=== PATIENT | female | born 1955 | race Caucasian/White ===

== ENCOUNTER → 2021-03-19 11:03 | Outpatient (CLI) | payer OTHER, SELFPAY ==
--- NOTE | ~2021-03-19 | US_ITS ---
EXAMINATION: US renal BI DATE: 03/19/2021 11:19 INDICATION: Abnormal result of function studies kidney TECHNIQUE: Multiple ultrasound grayscale images of the kidneys were obtained. COMPARISON: 07/02/2010 FINDINGS: The right kidney measures 10.2 x 3.9 x 4.6 cm. The left kidney measures 9.9 x 4.7 x 5.2 cm. The kidne ys demonstrate normal echogenicity. There is no hydronephrosis in either kidney. No stones identifie d. There is a 2.7 x 1.5 similar anechoic fluid collection which appears to communicate with the other santillan normal-appearing bladder which could represent either a bladder diverticulum or urethral diverti culum. IMPRESSION: 1. Normal kidneys without hydronephrosis. 2. 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 Reviewed, dictated and finalized at location A. [employer]
== END ==
PROVIDERS: PCP Family Medicine; Visit Provider Internal Medicine Nephrology
DX: R94.4 Abnormal results of kidney function studies (principal)
CPT/HCPCS: 76775

== ENCOUNTER 2021-05-10 07:26 | Outpatient (CLI) | payer OTHER, SELFPAY ==
[2021-05-10 07:52] LABS: Hemoglobin A1C 5.4 % (<5.7)
[2021-05-10 08:20] LABS: Alanine Aminotransferase 36 U/L (14-59); Albumin Level 3.9 g/dL (3.4-5.0); Alkaline Phosphatase 86 U/L (46-116); Anion Gap 9 mmol/L (8-16); Aspartate Amino Transferase 17 U/L (15-37); Bilirubin,Total 0.5 mg/dL (0.00-1.00); Blood Urea Nitrogen 17 mg/dL (7-18); Calcium 9.1 mg/dL (8.5-10.1); Carbon Dioxide 27 mmol/L (21-32); Chloride 105 mmol/L (98-108); Cholesterol 124 mg/dL (0-200); Estimated Glomerular Filt Rate 53; Glucose 106 mg/dL (70-99); HDL Direct 48 mg/dL (40-60); LDL Cholesterol Calculated 39 mg/dL (<130); Osmolality Calculated 293 mOsm/kg (285-295); Potassium 4.2 mmol/L (3.5-5.1); Sodium 141 mmol/L (136-145); Triglycerides 184 mg/dL (0-150)
[2021-05-13 18:17] LABS: Vitamin D 25 Hydroxy 56 ng/mL (30-100)
== END 2021-05-10 07:27 | disposition home or self-care (01) ==
LOC: CHSLAB 07:29
PROVIDERS: PCP Family Medicine; Visit Provider Family Medicine
DX: Z00.00 Encounter for general adult medical examination without abnormal findings (principal); E78.2 Mixed hyperlipidemia; E55.9 Vitamin D deficiency, unspecified; N18.30 Chronic kidney disease, stage 3 unspecified; R73.9 Hyperglycemia, unspecified
CPT/HCPCS: 36415; 80053; 80061; 82306; 83036

== ENCOUNTER 2021-07-16 16:35 | Outpatient (CLI) | payer OTHER, SELFPAY ==
[2021-07-16 17:06] LABS: Creatinine Urine 57.42 mg/dL (40-278); Total Protein Urine Random < 7.0 mg/dL (0.0-11.9); Ur Ttl Prot Creatinine Ratio 0.12 mg/mg (0-0.20)
[2021-07-16 17:36] LABS: Albumin Level 3.7 g/dL (3.4-5.0); Anion Gap 3 mmol/L (8-16); Blood Urea Nitrogen 20 mg/dL (7-18); Calcium 8.9 mg/dL (8.5-10.1); Carbon Dioxide 31 mmol/L (21-32); Chloride 104 mmol/L (98-108); Estimated Glomerular Filt Rate 52; Glucose 102 mg/dL (70-99); Osmolality Calculated 288 mOsm/kg (285-295); Phosphorus 3.5 mg/dL (2.6-4.7); Potassium 4.4 mmol/L (3.5-5.1); Sodium 138 mmol/L (136-145)
== END 2021-07-16 16:36 | disposition home or self-care (01) ==
LOC: CHSLAB 16:38
PROVIDERS: PCP Family Medicine; Visit Provider Internal Medicine Nephrology
DX: R94.4 Abnormal results of kidney function studies (principal)
CPT/HCPCS: 36415; 80069; 82570; 82610; 84156

== ENCOUNTER → 2021-09-30 15:48 | Outpatient (CLI) | payer MEDICARE, SELFPAY ==
--- NOTE | ~2021-09-30 | XR_ITS ---
EXAMINATION: XR finger 1st RT min 2V DATE: 09/30/2021 16:09 INDICATION: Right thumb pain. TECHNIQUE: 3 views of right thumb were obtained. COMPARISON: None. FINDINGS: Bone alignment is normal. No fracture. There is mild osteoarthritis of first carpometacarpa l joint, first metacarpophalangeal joint, and first interphalangeal joint. IMPRESSION: 1. Mild polyarticular osteoarthritis. Reviewed, dictated and finalized at location A.
== END ==
PROVIDERS: PCP Family Medicine; Visit Provider Physician Assistant Medical
DX: M19.041 Primary osteoarthritis, right hand (principal)
CPT/HCPCS: 73140

== ENCOUNTER 2022-05-16 10:48 | Outpatient (CLI) | payer MEDICARE, SELFPAY ==
--- NOTE | ~2022-05-16 | DEXA_ITS ---
Bone Density Report Name: ANDRE CANO Age: 66 Sex: Female Ethnicity: White Date of : 1955 Indication: postmenopausal; screening for osteoporosis; height loss; Referring Provider: Lien Mensah Study: Bone densitometry was performed. Exam Date: May 16, 2022 Accession number: [id number] Bone Density: Region BMD T-score Z-score Classification AP Spine(L2, L3, L4) 1.086 0.1 1.9 Normal Femoral Neck (Left) 0.717 -1.2 0.4 Osteopenia Total Hip (Left) 0.921 -0.2 1.1 Normal Femoral Neck (Right) 0.781 -0.6 0.9 Normal Total Hip (Right) 0.969 0.2 1.5 Normal Femoral Neck Mean 0.749 -0.9 0.6 Normal Total Hip Mean 0.945 0.0 1.3 Normal World Health Organization criteria for BMD impression classify patients as: Normal (T-score at or above -1.0), Osteopenia (T-score between -1.0 and -2.5), or Osteoporosis (T-score at or below -2.5). 10-year Fracture Risk(1): Major Osteoporotic Fracture 7.9% Hip Fracture 0.7% Reported Risk Factors: [place] (), Neck BMD=0.717, BMI=34.3 (1) FRAX(R) Version 3.08. Fracture probability calculated for an untreated patient. Fracture probability may be lower if the patient has received treatment. Clinical Information Provided by Patient: Has used the following medications: Vitamin D, Calcium, arovastatin Patient maximum height was 67 Menopause Age: 42 No regular weight bearing exercise Drinks caffeinated beverages Onset of menses at age 17 Number of children 4 Impression: The patient has low bone mass, based on the Left Femoral Neck T-score. Discussion: BONE DENSITY IS LOW AT ONE OR MORE SKELETAL SITES. This patient's lowest T-score is low at one or more skeletal sites. It meets the World Health Organization's (WHO) criteria for ?low bone mass? (T-score between -1.0 and -2.5). The patient's 10-year risk of fracture as calculated by FRAX is less than the threshold where pharmacological therapy is recommended by the National Osteoporosis Foundation (NOF). However, all treatment decisions require clinical judgment and consideration of individual patient factors, including patient preferences, comorbidities, previous drug use, risk factors not captured in the FRAX model (e.g., frailty, falls, vitamin D deficiency, increased bone turnover, interval significant decline in bone density) and possible under or overestimation of fracture risk by FRAX. The patient should follow a healthful lifestyle (good nutrition with adequate calcium and vitamin D, and appropriate weight-bearing exercise). Follow-Up: Consider repeating this study in 2 to 3 years to reassess this patient's status, or sooner if there is some new clinical indication. Reported by: Dr. Andre Hogan on 05/16/2022 11:18:00 AM.
== END 2022-05-16 10:49 | disposition home or self-care (01) ==
LOC: CHSIMG 10:50
PROVIDERS: PCP Family Medicine; Visit Provider Family Medicine
DX: Z78.0 Asymptomatic menopausal state (principal); M85.88 Other specified disorders of bone density and structure, other site
CPT/HCPCS: 77080

== ENCOUNTER 2022-06-02 07:59 | Outpatient (RCR) | payer MEDICARE, SELFPAY ==
--- NOTE | 2022-06-02 08:48 | PTOPEVAL1 ---
Assessment and note entered by Joseph Hammer Evaluation Information Assessment Status Evaluation Diagnosis arthralgia, weakness Onset 11/16/21 Subjective Information Pt. reports that she was able to do a 10 mile hike as of the past year. She reports she has noticed progressive fatigue and an inability to walk that distance over the past year. She states that she can have pain through both the upper body and lower body that limits her ability to stand for extended periods of time. She reports that she requires support to get off the floor. She notices she fatigues more easily with stair navigation. She is concerned regarding a general decline in her endurance and strength. She reports that the most she walks currently is about 2/3 of a mile. Pt. reports she has done multiple labs, which all return normal. She reports that her goal is to improve her strength and endurance with standing activities. Reported Pain Level Pain Score 8: Self Report Assessment PT Clinical Summary Pt. is a 66 year old female who enters the clinic due to developement of generalized pain and weakness through the upper and lower extremities. She presents with impaired flexibility and impaired proximal u.e. and l.e. strength on this date. Continued skilled PT is indicated in order to improve these areas to allow the pt. to improve endurance and comfort with standing activities. Plan of Care Interventions Electrical Stimulation,Manual Therapy,Neuro Re- education,Patient/Caregiver Educati,Therapeutic Activities,Therapeutic Exercise,Self-Care/Home Management PT Services Indicated Yes Treatment Frequency and 2x/week x 8 visits Duration These treatments will address the objective and functional deficits as defined above. The patient will be advanced safely and appropriately in order for the patient to progress towards his/her prior level of function. Additional exercises will be introduced and as well as a comprehensive home exercise program upon discharge, if needed, ?to ensure carryover of functional gains achieved in the clinic. This treatment plan has been reviewed and agreement upon by the patient.
== END 2022-06-25 13:27 | disposition home or self-care (01) ==
LOC: CHSPT 07:59
DX: M25.50 Pain in unspecified joint (principal)
CPT/HCPCS: 97110; 97112; 97161; 97530; 97750

== ENCOUNTER 2022-11-12 08:17 | Outpatient (CLI) | payer MEDICARE, SELFPAY ==
[2022-11-12 09:12] LABS: Alanine Aminotransferase 31 U/L (14-59); Albumin Level 3.7 g/dL (3.4-5.0); Alkaline Phosphatase 106 U/L (46-116); Anion Gap 11 mmol/L (8-16); Aspartate Amino Transferase 14 U/L (15-37); Bilirubin,Total 0.7 mg/dL (0.00-1.00); Blood Urea Nitrogen 13 mg/dL (7-18); Calcium 9.6 mg/dL (8.5-10.1); Carbon Dioxide 26 mmol/L (21-32); Chloride 104 mmol/L (98-108); Cholesterol 157 mg/dL (0-200); Estimated Glomerular Filt Rate 55; Glucose 107 mg/dL (70-99); HDL Direct 44 mg/dL (40-60); LDL Cholesterol Calculated 65 mg/dL (<130); Osmolality Calculated 292 mOsm/kg (285-295); Potassium 4.3 mmol/L (3.5-5.1); Sodium 141 mmol/L (136-145); Total Protein 7.1 g/dL (6.4-8.2); Triglycerides 239 mg/dL (0-150)
== END 2022-11-12 08:18 | disposition home or self-care (01) ==
LOC: CHSLAB 08:19
PROVIDERS: PCP Family Medicine; Visit Provider Family Medicine
DX: E78.2 Mixed hyperlipidemia (principal); N18.30 Chronic kidney disease, stage 3 unspecified
CPT/HCPCS: 36415; 80053; 80061

== ENCOUNTER 2023-01-12 15:05 | Outpatient (CLI) | payer MEDICARE, SELFPAY ==
--- NOTE | ~2023-01-12 | XR_ITS ---
EXAMINATION: XR ankle LT min 3V DATE: 01/12/2023 15:24 INDICATION: Left ankle pain. TECHNIQUE: 4 views of left ankle were obtained. COMPARISON: None. FINDINGS: There is a transverse fracture of lateral malleolus in near-anatomic alignment with medial aspect of the fracture line 9 mm distal to the level of the tibial plafond. There is mild osteoarthri tis of talonavicular joint. There are enthesophytes at the posterior and plantar aspects of calcaneal tuberosity. Ankle soft tissue swelling is noted. IMPRESSION: 1. Transverse fracture of lateral malleolus. Reviewed, dictated and finalized at location A. NTORY REPRESENTATIVE
== END 2023-01-12 15:06 | disposition home or self-care (01) ==
PROVIDERS: PCP Family Medicine; Visit Provider Family Medicine
DX: S82.62XA Displaced fracture of lateral malleolus of left fibula, initial encounter for closed fracture (principal); X58.XXXA Exposure to other specified factors, initial encounter
CPT/HCPCS: 73610

== ENCOUNTER 2023-02-02 07:32 | Outpatient (CLI) | payer MEDICARE, SELFPAY ==
--- NOTE | ~2023-02-02 | XR_ITS ---
EXAMINATION: XR ankle LT min 3V DATE: 02/02/2023 08:35 INDICATION: Left ankle pain TECHNIQUE: Anteroposterior, oblique, mortise, and lateral views of the left ankle were obtained. COMPARISON: None. FINDINGS: Again seen is a transverse fracture across the lateral malleolus extending to the medial cortex 9 mm distal to the level of the tibiotalar joint line. The lucent fracture plane is increased slightly in width now measuring 2-3 mm which could be due to either minimal distal distraction or resorptive lombardo ges of healing. No definitive productive changes of healing yet apparent. Alignment remains near-valentin omic with a congruent ankle mortise. No other fractures identified. Joint spaces are normal. Achilles and plantar calcaneal spurs. Decrease in the still small amount of soft tissue swelling about the la teral malleolus with resolution of the medial sided soft tissue swelling. Persistent small ankle join t effusion. IMPRESSION: 1. Ununited transverse fracture of the distal left lateral malleolus with slight increase in width of a now 2-3 mm lucent fracture plane which could be due to either minimal distal distraction or resorp tive changes of healing. No definitive productive changes of healing yet apparent.. Reviewed, dictated and finalized at location A. R [employer] IMPRESSION: 1. Ununited transverse fracture of the distal left lateral malleolus with sligh t increase in width of a now 2-3 mm lucent fracture plane which could be due to either minimal distal distraction or resorptive changes of healing. No definit ileana productive changes of healing yet apparent..
== END 2023-02-02 07:33 | disposition home or self-care (01) ==
LOC: CHSIMG 07:35
PROVIDERS: PCP Family Medicine; Visit Provider Orthopaedic Surgery
DX: M25.572 Pain in left ankle and joints of left foot (principal); S82.62XA Displaced fracture of lateral malleolus of left fibula, initial encounter for closed fracture
CPT/HCPCS: 73610

== ENCOUNTER 2023-06-16 09:36 | Outpatient (CLI) | payer MEDICARE, SELFPAY ==
[2023-06-16 10:09] LABS: Hemoglobin A1C 5.4 % (<5.7)
[2023-06-16 10:28] LABS: Alanine Aminotransferase 48 U/L (14-59); Albumin Level 3.7 g/dL (3.4-5.0); Alkaline Phosphatase 108 U/L (46-116); Anion Gap 7 mmol/L (4-12); Aspartate Amino Transferase 26 U/L (15-37); Bilirubin,Total 0.5 mg/dL (0.00-1.00); Blood Urea Nitrogen 17 mg/dL (7-18); Calcium 9.1 mg/dL (8.5-10.1); Carbon Dioxide 29 mmol/L (21-32); Chloride 102 mmol/L (98-108); Cholesterol 166 mg/dL (0-200); Estimated Glomerular Filt Rate 54; Glucose 98 mg/dL (70-99); HDL Direct 48 mg/dL (40-60); LDL Cholesterol Calculated 71 mg/dL (<130); Osmolality Calculated 287 mOsm/kg (285-295); Potassium 4.2 mmol/L (3.5-5.1); Sodium 138 mmol/L (136-145); Triglycerides 233 mg/dL (0-150)
== END 2023-06-16 09:37 | disposition home or self-care (01) ==
LOC: CHSLAB 09:38
PROVIDERS: PCP Family Medicine; Visit Provider Family Medicine
DX: R73.9 Hyperglycemia, unspecified (principal); E78.2 Mixed hyperlipidemia
CPT/HCPCS: 36415; 80053; 80061; 83036

== ENCOUNTER 2023-11-11 13:59 | Outpatient (CLI) | payer MEDICARE, SELFPAY ==
[2023-11-11 15:11] LABS: Influenza A QL RT-PCR Negative (Negative); Influenza B QL RT-PCR Negative (Negative); RSV RNA, RT-PCR Negative (Negative); SARS-CoV-2 RNA PCR Positive (Negative)
== END 2023-11-11 14:00 | disposition home or self-care (01) ==
PROVIDERS: PCP Family Medicine; Visit Provider Family Medicine
DX: U07.1 COVID-19 (principal); J06.9 Acute upper respiratory infection, unspecified
CPT/HCPCS: 87637

== ENCOUNTER 2023-12-31 09:48 | Outpatient (CLI) | payer MEDICARE, SELFPAY ==
[2023-12-31 10:08] LABS: Basophils Absolute Auto 0.1 K/mm3 (0.0-0.1); Basophils Percent Auto 0.9 % (0.2-1.2); Eosinophils Absolute Auto 0.1 K/mm3 (0-0.3); Eosinophils Percent Auto 1.7 % (0-4.4); Hematocrit 45.1 % (37.0-47.0); Lymphocytes Absolute Auto 2.52 K/mm3 (0.9-3.2); Lymphocytes Percent Auto 47.6 % (18.3-44.2); Mean Corpuscular HGB Conc 33.3 g/dl (32-36); Mean Corpuscular Volume 93.2 fl (80-100); Mean Platelet Volume 9.4 fl (7.4-10.4); Monocytes Absolute Auto 0.5 K/mm3 (0.1-0.6); Monocytes Percent Auto 8.9 % (2.6-8.5); Neutrophils Absolute Auto 2.2 K/mm3 (1.3-6.7); Neutrophils Percent Auto 40.9 % (45.5-73.1); Platelet Count Result 351 k/mm3 (150-375); Red Blood Count 4.84 M/mm3 (4.2-5.4); Red Cell Distribution Width 13.6 % (11.5-14.5); White Blood Count 5.3 K/mm3 (4.5-10.0)
[2023-12-31 10:33] LABS: Alanine Aminotransferase 47 U/L (6-35); Albumin Level 4.5 g/dL (3.5-5.1); Alkaline Phosphatase 98 U/L (38-126); Anion Gap 7 mmol/L (4-12); Aspartate Amino Transferase 43 U/L (14-36); Bilirubin,Total 0.8 mg/dL (0.2-1.3); Blood Urea Nitrogen 21 mg/dL (7-17); Calcium 9.1 mg/dL (8.4-10.2); Carbon Dioxide 27 mmol/L (22-30); Chloride 103 mmol/L (98-107); Cholesterol 151 mg/dL (0-200); Estimated Glomerular Filt Rate > 60; Glucose 114 mg/dL (65-110); HDL Direct 47 mg/dL; Potassium 4.2 mmol/L (3.4-5.0); Sodium 137 mmol/L (137-145); Triglycerides 186 mg/dL (<150)
[2023-12-31 10:44] LABS: LDL Cholesterol Direct 71 mg/dL
[2023-12-31 14:12] LABS: Hemoglobin A1C 5.7 % (<5.7)
== END 2023-12-31 09:49 | disposition home or self-care (01) ==
PROVIDERS: PCP Family Medicine; Visit Provider Family Medicine
DX: E78.2 Mixed hyperlipidemia (principal); R53.83 Other fatigue; Z13.1 Encounter for screening for diabetes mellitus
CPT/HCPCS: 36415; 80053; 80061; 83036; 85025